=== PATIENT | female | born 1960 | race Caucasian/White ===

== ENCOUNTER 2017-03-03 17:07 | Emergency (ER) | payer OTHER, MEDICARE ==
--- NOTE | 2017-03-03 19:18 | CT ---
Head CT Technique: Multiple axial sections through the brain were obtained. Intravenous contrast was not utilized. Comparison: No previous intracranial imaging is available. Findings: Ventricles along with basal cisterns and sulci over the convexities are within normal limits for the patient's age. No abnormal parenchymal densities are seen. No evidence of intracranial hemorrhage. No midline shift or mass effect is seen. Bone window settings were reviewed which show no acute calvarial abnormality. Paranasal sinuses that are seen appear clear. Mucosal thickening is seen within the inferior left mastoid sinus. Impression: 1. Mucosal thickening within the inferior left mastoid sinus which is likely incidental. 2. No acute intracranial abnormality is identified on noncontrast head CT exam. Diagnostic code #2
--- NOTE | 2017-03-03 19:18 | CT ---
CT cervical spine Technique: Multiple axial sections were obtained from above C1 inferiorly to the bottom of T2. Reconstructed sagittal and coronal images were reviewed. Comparison: No prior cervical spine imaging is available. Findings: Moderate disc space narrowing is noted at C4-C5. Severe disc space narrowing is noted C5-C6. Mild disc space narrowing at C6-C7 and C7-T1. Anterior osteophytes are noted at C4-C5 C5-C6. Minimal posterior osteophytes are noted at C4-C5 and C5-C6. Slight osteophytes are noted off the uncovertebral joints at C4-C5 and C5-C6. Slight mucosal thickening is seen within the inferior left mastoid sinus which is likely incidental. Middle ear cavities are clear. Posterior skull base is intact. Vertebral bodies and posterior arches are intact. No subluxation or fracture is seen. No bony central or bony neural foraminal stenosis is seen. Mild degenerative change is scattered within the apophyseal joints. Impression: 1. Degenerative change as noted above. Nothing acute is appreciated on CT study of the cervical spine. Diagnostic code #2
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
== END 2017-03-03 19:43 | disposition home or self-care (01) ==
LOC: JD.ED 17:07
DX: M54.2 Cervicalgia (principal); R51 Headache; I10 Essential (primary) hypertension; Z88.2 Allergy status to sulfonamides
CPT/HCPCS: 70450; 70450-26; 72125; 72125-26; 99283; 99284-25

== ENCOUNTER 2019-11-15 16:13 | Emergency (ER) | payer MEDICARE, OTHER ==
[2019-11-15] MEDS ORDERED: Sodium Chloride 0.9% 10 ML Syringe FLUSH PRN (16:19)
[2019-11-15] MEDS ORDERED: Diphtheria,Pertussis(Acell),Tetanus Vaccine 0.5 ML Syringe IM ONE (16:21)
[2019-11-15] MEDS ORDERED: HYDROmorphone 1 MG/ML Syringe IVPUSH ONE (16:21)
[2019-11-15] MEDS ORDERED: ceFAZolin 2 GM in Premix Bag 1 BAG IV ONE (16:22)
[2019-11-15] MEDS ORDERED: Lactated Ringers 1,000 ML IV SCH (16:30)
[2019-11-15] MEDS ORDERED: Ketamine 500 mg/10 ML MDV IV ONE (16:51)
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
[2019-11-15] MEDS ORDERED: Ondansetron 4 MG/2 ML SDV IVPUSH ONE (17:57)
[2019-11-15] MEDS ORDERED: Ondansetron 4 MG/2 ML SDV ONE (17:58)
[2019-11-15] MEDS: Potassium Chloride 10 MEQ in Premix Bag 1 BAG IV SCH ×2 (18:01→18:15)
== END 2019-11-15 18:15 ==
LOC: JD.ED 16:13
DX: S82.202C Unspecified fracture of shaft of left tibia, initial encounter for open fracture type IIIA, IIIB, or IIIC (principal); S82.402C Unspecified fracture of shaft of left fibula, initial encounter for open fracture type IIIA, IIIB, or IIIC; S93.05XA Dislocation of left ankle joint, initial encounter; I10 Essential (primary) hypertension; E66.9 Obesity, unspecified; Z68.39 Body mass index [BMI] 39.0-39.9, adult; Z88.2 Allergy status to sulfonamides; Z23 Encounter for immunization; X50.1XXA Overexertion from prolonged static or awkward postures, initial encounter
CPT/HCPCS: 27840; 36415; 73600; 80053; 84484; 85025; 90471; 90715; 93005; 96361; 96365; 96375; 99152; 99153; 99285; J0690; J1170; J2405; J3480; J7120; U0002; 99283

== ENCOUNTER 2022-08-23 10:14 | Emergency (ER) | payer MEDICARE, OTHER ==
[2022-08-23] MEDS ORDERED: Rabies Immune Globulin PF 150 Units/ML 2 ML SDV IM ONE (11:18)
[2022-08-23] MEDS ORDERED: Rabies Vaccine (Avian) 2.5 Unit Inj Kit IM ONE (11:18)
[2022-08-23] MEDS ORDERED: Rabies Immune Globulin/PF (HyperRAB) 300 UNIT/ML 5 ML SDV IM ONE (11:30)
== END 2022-08-23 12:19 | disposition home or self-care (01) ==
LOC: JD.ED 10:14
DX: S61.452A Open bite of left hand, initial encounter (principal); S61.451A Open bite of right hand, initial encounter; Z29.14 Encounter for prophylactic rabies immune globulin; W55.01XA Bitten by cat, initial encounter
CPT/HCPCS: 90375; 90471; 90675; 96372; 99282; 99283-25